=== PATIENT | male | born 1990 | race Hispanic/Latino ===

== ENCOUNTER 2016-09-08 10:50 | Emergency (ER) | payer BC, MEDICAID ==
[2016-09-08 10:56] VITALS: BMI 26.2
[2016-09-08 11:01] VITALS: BP 141/75; TEMP 98.2
--- NOTE | 2016-09-08 11:03 | ED PDOC ---
Arrival/HPI - General Historian: Patient - General Time Seen by Provider: 09/08/16 10:59 - History of Present Illness Narrative History of Present Illness (Text): 09/08/16 10:59 25 y/o male, nkda, psychiatric history of anxiety and ADHD, on adderall and xanax, c/o rt. hand 3rd digit finger injury from the fall x 1 day. Aching pain , aggravated by movement, aching pain, no numbness or tingling, no chest pain or shortness of breath, no night sweat, no other medical or psychological complaints. (Eugene Garcia) Past Medical History - Provider Review Nursing Documentation Reviewed: Yes - Infectious Disease Hx of Infectious Diseases: None - Cardiac Hx Cardiac Disorders: Yes Other/Comment: tachy when at the [facility] "white coat syndrome" - Pulmonary Hx Respiratory Disorders: No - Neurological Hx Neurological Disorder: No - HEENT Hx HEENT Disorder: No - Renal Hx Renal Disorder: No - Endocrine/Metabolic Hx Endocrine Disorders: No - Hematological/Oncological Hx Blood Disorders: No - Integumentary Hx Dermatological Disorder: No - Musculoskeletal/Rheumatological Hx Musculoskeletal Disorders: No - Gastrointestinal Hx Gastrointestinal Disorders: No - Genitourinary/Gynecological Hx Genitourinary Disorders: No - Psychiatric Hx Anxiety: Yes Hx Depression: Yes Hx Substance Use: No Other/Comment: ADD - Anesthesia Hx Anesthesia: No - Suicidal Assessment Feels Threatened In Home Enviroment: No Family/Social History - Physician Review Nursing Documentation Reviewed: Yes Family/Social History: Unknown Family HX Smoking Status: Never Smoked Hx Alcohol Use: Yes Frequency of alcohol use: Socially Hx Substance Use: No Allergies/Home Meds Allergies/Adverse Reactions: Allergies No Known Allergies Allergy (Verified 09/08/16 10:55) Home Medications: Home Meds Medication Instructions Recorded Confirmed ALPRAZolam [Xanax] 1 mg PO QID PRN 09/08/16 09/08/16 Dextroamphetamine/Amphetamine 30 mg PO BID 09/08/16 09/08/16 [Adderall 10 mg Tablet] Review of Systems - Review of Systems Constitutional: absent: Fatigue, Fevers Eyes: absent: Vision Changes ENT: absent: Hearing Changes Respiratory: absent: SOB, Cough Cardiovascular: absent: Chest Pain Gastrointestinal: absent: Abdominal Pain, Nausea, Vomiting Musculoskeletal: Arthralgias. absent: Back Pain, Neck Pain, Joint Swelling, Myalgias Skin: absent: Rash, Pruritis, Skin Lesions, Laceration Physical Exam Vital Signs Reviewed: Yes Temperature: Afebrile Blood Pressure: Normal Pulse: Regular Respiratory Rate: Normal Appearance: Positive for: Well-Appearing, Non-Toxic, Comfortable Pain Distress: Mild Mental Status: Positive for: Alert and Oriented X 3 - Systems Exam Head: Present: Atraumatic, Normocephalic Pupils: Present: PERRL Extroacular Muscles: Present: EOMI Conjunctiva: Present: Normal Mouth: Present: Moist Mucous Membranes Neck: Present: Normal Range of Motion Respiratory/Chest: Present: Clear to Auscultation, Good Air Exchange. No: Respiratory Distress, Accessory Muscle Use Cardiovascular: Present: Regular Rate and Rhythm, Normal S1, S2. No: Murmurs Abdomen: Present: Normal Bowel Sounds. No: Tenderness, Distention, Peritoneal Signs Back: Present: Normal Inspection Upper Extremity: Present: Normal Inspection, Other (Rt. hand: +ttp and swelling on the 3rd PIPJ with skin intact, no laceration or abrasion, FROM without limitation, sensation intact, motor 5/5, +radial pulse, capillary refill< 2 seconds, no visible puncture wound, no cellulitis or streaking, no ulcers, no sausage shaped fingers, +radial pulse, capillary refill< 2 seconds, neurovascular intact. ). No: Cyanosis, Edema Lower Extremity: Present: Normal Inspection. No: Edema Neurological: Present: GCS=15, Speech Normal, Motor Func Grossly Intact, Gait Normal, Memory Normal Skin: Present: Warm, Dry, Normal Color. No: Rashes Psychiatric: Present: Alert, Oriented x 3, Normal Insight, Normal Concentration Medical Decision Making - RAD Interpretation Assistant Offset Press Operator: Radiologist ED Course and Treatment: 09/08/16 11:02 -rt. hand xray 3rd digit show +fracture noted on the PIPJ of 3rd middle phalanx base region. -finger splint applied with neurovascular intact. -Discharge home with naproxen, finger splint, ice pack, follow up with your own pmd and hand specialist within 2 days, return to the ER for any new or worsening signs or symptoms. (Eugene Garcia) I was available for consultation during PA evaluation. The chart was reviewed by me, and I agree with disposition. The documented history was done by the physician jewellery designer. The documented physical exam was done by the physician jewellery designer. The documented procedures were done by the physician jewellery designer. (Ulises Berger) - RAD Interpretation Radiology Orders: 09/08/16 11:00 HAND RIGHT 3RD DIGIT (FINGER) [RAD] Stat PROCEDURE: Right middle finger radiographs. HISTORY: rt. hand 3rd digit PIPJ injury from fall COMPARISON: None available. TECHNIQUE: AP radiograph of the right hand, as well as spot oblique and lateral images of right middle finger were obtained. FINDINGS: RIGHT MIDDLE FINGER: Right 3rd digit demonstrates minimally displaced fracture of the proximal aspect middle phalanx with intra-articular extension. Remainder of the right hand (as seen on the AP view) grossly unremarkable. JOINTS: No dislocation. SOFT TISSUES: Soft tissue swelling. No evidence of radiopaque foreign body. OTHER FINDINGS: None. IMPRESSION: Minimally displaced fracture of the proximal aspect 3rd digit middle phalanx with intra-articular extension. Soft tissue swelling. (Eugene Garcia) - PA / APPLICATION PACKAGING SPECIALIST / Resident Statement MD/DO has reviewed & agrees with the documentation as recorded. Disposition/Present on Arrival - Present on Arrival Any Indicators Present on Arrival: No History of DVT/PE: No History of Uncontrolled Diabetes: No Urinary Catheter: No History of Decub. Ulcer: No History Surgical Site Infection Following: None - Disposition Have Diagnosis and Disposition been Completed?: Yes Disposition Time: 11:03 Patient Plan: Discharge - Disposition Diagnosis: Finger injury, Finger pain, Finger fracture Disposition: HOME/ ROUTINE Condition: GOOD Additional Instructions: -Discharge home with naproxen, finger splint, ice pack, follow up with your own pmd and hand specialist within 2 days, return to the ER for any new or worsening signs or symptoms. Prescriptions: Ibuprofen [Motrin Tab] 600 mg PO QID PRN #24 tab PRN Reason: Other Referrals: Patti SAM,Sebastian Alexander MD [Primary Care Provider] - Follow up with primary Eduardo Izquierdo III, MD [Medical Doctor] - Follow up with primary Bolivar Bingham MD [Staff Provider] - Follow up with primary Forms: WORK NOTE
[2016-09-08 11:56] VITALS: PULSE 82; RESP 18; O2SAT 100
--- NOTE | 2016-09-08 12:07 | RAD ---
PROCEDURE: Right middle finger radiographs. HISTORY: rt. hand 3rd digit PIPJ injury from fall COMPARISON: None available. TECHNIQUE: AP radiograph of the right hand, as well as spot oblique and lateral images of right middle finger were obtained. FINDINGS: RIGHT MIDDLE FINGER: Right 3rd digit demonstrates minimally displaced fracture of the proximal aspect middle phalanx with intra-articular extension. Remainder of the right hand (as seen on the AP view) grossly unremarkable. JOINTS: No dislocation. SOFT TISSUES: Soft tissue swelling. No evidence of radiopaque foreign body. OTHER FINDINGS: None. IMPRESSION: Minimally displaced fracture of the proximal aspect 3rd digit middle phalanx with intra-articular extension. Soft tissue swelling.
== END 2016-09-08 12:02 | disposition home or self-care (01) ==
LOC: ED 10:50
DX: S62.612A Displaced fracture of proximal phalanx of right middle finger, initial encounter for closed fracture (principal); W01.0XXA Fall on same level from slipping, tripping and stumbling without subsequent striking against object, initial encounter; Y93.21 Activity, ice skating; Y92.89 Other specified places as the place of occurrence of the external cause

== ENCOUNTER 2016-09-16 15:19 | Emergency (ER) | payer BC ==
[2016-09-16 15:19] VITALS: BMI 26.2
== END 2016-09-16 16:25 | disposition left against medical advice (07) ==
LOC: ED 15:19
DX: Z02.89 Encounter for other administrative examinations (principal); Z00.00 Encounter for general adult medical examination without abnormal findings

== ENCOUNTER 2016-10-18 14:08 | Emergency (ER) | payer BC ==
[2016-10-18 14:16] VITALS: BMI 26.1
[2016-10-18 14:20] VITALS: RESP 18; TEMP 98.7; O2SAT 99
--- NOTE | 2016-10-18 14:37 | ED PDOC ---
Arrival/HPI - General Chief Complaint: Finger,Hand,&Wrist Time Seen by Provider: 10/18/16 14:33 Historian: Patient - History of Present Illness Narrative History of Present Illness (Text): 10/18/16 14:34 25 y/o male, pmh including rt. hand 3rd digit finger fracture about 4 weeks ago , nkda, c/o rt. hand 3rd digit pain after carrying the grocery. Pt. stated that he recently removed the splint after he told he was seen by the hand specialist to tell him to remove it. 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 Past Medical History - Provider Review Nursing Documentation Reviewed: Yes - Infectious Disease Hx of Infectious Diseases: None - Cardiac Hx Cardiac Disorders: Yes Other/Comment: tachy when at the [facility] "white coat syndrome" - Pulmonary Hx Respiratory Disorders: No - Neurological Hx Neurological Disorder: No - HEENT Hx HEENT Disorder: No - Renal Hx Renal Disorder: No - Endocrine/Metabolic Hx Endocrine Disorders: No - Hematological/Oncological Hx Blood Disorders: No - Integumentary Hx Dermatological Disorder: No - Musculoskeletal/Rheumatological Hx Musculoskeletal Disorders: No - Gastrointestinal Hx Gastrointestinal Disorders: No - Genitourinary/Gynecological Hx Genitourinary Disorders: No - Psychiatric Hx Anxiety: Yes Hx Depression: Yes Hx Substance Use: No Other/Comment: ADD - Anesthesia Hx Anesthesia: No - Suicidal Assessment Feels Threatened In Home Enviroment: No Family/Social History - Physician Review Nursing Documentation Reviewed: Yes Family/Social History: Unknown Family HX Smoking Status: Current Some Days Smoker Hx Alcohol Use: Yes Frequency of alcohol use: Socially Hx Substance Use: No Allergies/Home Meds Allergies/Adverse Reactions: Allergies No Known Allergies Allergy (Verified 09/08/16 10:55) Home Medications: Home Meds Medication Instructions Recorded Confirmed ALPRAZolam [Xanax] 1 mg PO QID PRN 09/08/16 10/18/16 Dextroamphetamine/Amphetamine 30 mg PO BID 09/08/16 10/18/16 [Adderall 10 mg Tablet] Review of Systems - Review of Systems Constitutional: absent: Fatigue, Fevers Eyes: absent: Vision Changes ENT: absent: Hearing Changes Respiratory: absent: SOB, Cough Cardiovascular: absent: Chest Pain Gastrointestinal: absent: Abdominal Pain, Nausea, Vomiting Musculoskeletal: Arthralgias. absent: Back Pain, Neck Pain Skin: absent: Rash, Pruritis, Skin Lesions Physical Exam Vital Signs Reviewed: Yes Vital Signs Temp Pulse Resp BP Pulse Ox 10/18/16 15:23 98 H 18 148/94 H 99 10/18/16 14:19 98.7 F 113 H 18 150/103 H 99 Temperature: Afebrile Blood Pressure: Hypertensive Pulse: Tachycardic Respiratory Rate: Normal Appearance: Positive for: Well-Appearing, Non-Toxic, Comfortable Pain Distress: Mild Mental Status: Positive for: Alert and Oriented X 3 - Systems Exam Head: Present: Atraumatic, Normocephalic Pupils: Present: PERRL Extroacular Muscles: Present: EOMI Conjunctiva: Present: Normal Mouth: Present: Moist Mucous Membranes Neck: Present: Normal Range of Motion Respiratory/Chest: Present: Clear to Auscultation, Good Air Exchange. No: Respiratory Distress, Accessory Muscle Use Cardiovascular: Present: Regular Rate and Rhythm, Normal S1, S2. No: Murmurs Abdomen: Present: Normal Bowel Sounds. No: Tenderness, Distention, Peritoneal Signs Back: Present: Normal Inspection Upper Extremity: Present: Normal Inspection, Other (Rt. hand 3rd digit: mild swelling with mild +ttp on the PIPJ, skin intact, no ecchymosis, no laceration or abrasion, FROM without limitation, sensation intact, motor 5/5, +radial pulse , capillary refill< 2 seconds, neurovascular intact. ). No: Cyanosis, Edema Lower Extremity: Present: Normal Inspection. No: Edema Neurological: Present: GCS=15, CN II-XII Intact, Speech Normal Skin: Present: Warm, Dry, Normal Color. No: Rashes Psychiatric: Present: Alert, Oriented x 3, Normal Insight, Normal Concentration Medical Decision Making ED Course and Treatment: 10/18/16 14:36 -repeat xray -pt. has the splint on from the hand specialist which he just removed it. 10/18/16 14:58 -Xray reviewed there is healing fracture on the rt. hand 3rd PIPJ which is also seen on the previous xray. -Discharge home with naproxen, keep the finger splint on, follow up with your own pmd and hand specialist within 2 days, return to the ER for any new or worsening signs or symptoms. - RAD Interpretation Radiology Orders: 10/18/16 14:33 HAND RIGHT 3RD DIGIT (FINGER) [RAD] Stat healing intra-articular fracture Measurement Supervisor: Radiologist - PA / TEST DESK OPERATOR / Resident Statement MD/DO has reviewed & agrees with the documentation as recorded. Disposition/Present on Arrival - Present on Arrival Any Indicators Present on Arrival: No History of DVT/PE: No History of Uncontrolled Diabetes: No Urinary Catheter: No History of Decub. Ulcer: No History Surgical Site Infection Following: None - Disposition Have Diagnosis and Disposition been Completed?: Yes Diagnosis: Finger fracture Disposition: HOME/ ROUTINE Disposition Time: 14:37 Patient Plan: Discharge Condition: GOOD Additional Instructions: -Discharge home with naproxen, keep the finger splint on, follow up with your own pmd and hand specialist within 2 days, return to the ER for any new or worsening signs or symptoms. Prescriptions: Naproxen 500 mg PO BID PRN #20 tab PRN Reason: Other Referrals: Dalia Napier MD [Non-Staff] - Follow up with primary Forms: [employer] (Senegalese), WORK NOTE
[2016-10-18 15:24] VITALS: BP 148/94; PULSE 98
--- NOTE | 2016-10-18 16:21 | RAD ---
PROCEDURE: Right middle finger radiographs. HISTORY: rt. hand 3rd digit pain, recently fractured COMPARISON: Comparison made with prior study dated 09/06/2026 TECHNIQUE: AP radiograph of the right hand, as well as spot oblique and lateral images of right middle finger were obtained. FINDINGS: RIGHT MIDDLE FINGER: Current study re- demonstrates apparent healing intra-articular fracture of the palmar aspect base proximal phalanx 3rd finger (volar plate). JOINTS: Joint spaces preserved. SOFT TISSUES: There appears to be mild soft tissue swelling surrounding the PIP joint 3rd finger. OTHER FINDINGS: None. IMPRESSION: Apparent healing intra-articular fracture palmar aspect base proximal phalanx 3rd finger (volar plate).
== END 2016-10-18 15:45 | disposition home or self-care (01) ==
LOC: ED 14:08
DX: S62.602A Fracture of unspecified phalanx of right middle finger, initial encounter for closed fracture (principal); X50.0XXA Overexertion from strenuous movement or load, initial encounter; Y93.89 Activity, other specified; Y92.89 Other specified places as the place of occurrence of the external cause

== ENCOUNTER 2017-02-04 14:22 | Emergency (ER) | payer MEDICAID, OTHER ==
[2017-02-04 14:23] VITALS: BMI 26.1
[2017-02-04 14:37] VITALS: RESP 16; TEMP 99.3
--- NOTE | 2017-02-04 15:06 | ED PDOC ---
Arrival/HPI - General Chief Complaint: Upper Extremity Problem/Injury Time Seen by Provider: 02/04/17 14:54 Historian: Patient - History of Present Illness Narrative History of Present Illness (Text): 02/04/17 15:02 26yr old male presents today with right 3rd finger pain s/p injury. pt states that fell landing on the right hand injuring the right 3rd finger. pt denies hitting his head. Denies neck or back pain. Patient denies abdominal pain. No nausea or vomiting. Denies dizziness or weakness. He denies any wrist pain. Patient states he only has pain to the right third finger. He denies decreased range of motion of the finger. Denies chest pain or shortness of breath. Patient states he is very anxious and does not like to be in hospitals. Time/Duration: Other (yesterday) Symptom Onset: Sudden Symptom Course: Improving Quality: Aching Severity Level: 1 Past Medical History - Provider Review Nursing Documentation Reviewed: Yes - Travel History Have you recently traveled outside [place] w/in the past 3 mons?: No - Infectious Disease Hx of Infectious Diseases: None - Cardiac Hx Cardiac Disorders: Yes Other/Comment: frida when at the MD "white coat syndrome" - Pulmonary Hx Respiratory Disorders: No - Neurological Hx Neurological Disorder: No - HEENT Hx HEENT Disorder: No - Renal Hx Renal Disorder: No - Endocrine/Metabolic Hx Endocrine Disorders: No - Hematological/Oncological Hx Blood Disorders: No - Integumentary Hx Dermatological Disorder: No - Musculoskeletal/Rheumatological Hx Musculoskeletal Disorders: No - Gastrointestinal Hx Gastrointestinal Disorders: No - Genitourinary/Gynecological Hx Genitourinary Disorders: No - Psychiatric Hx Anxiety: Yes Hx Depression: Yes Hx Substance Use: No Other/Comment: ADD - Anesthesia Hx Anesthesia: No - Suicidal Assessment Feels Threatened In Home Enviroment: No Family/Social History - Physician Review Nursing Documentation Reviewed: Yes Family/Social History: Unknown Family HX Smoking Status: Current Some Days Smoker Hx Alcohol Use: Yes Hx Substance Use: No Allergies/Home Meds Allergies/Adverse Reactions: Allergies No Known Allergies Allergy (Verified 09/08/16 10:55) Home Medications: Home Meds Medication Instructions Recorded Confirmed ALPRAZolam [Xanax] 1 mg PO QID PRN 09/08/16 02/04/17 Review of Systems - Review of Systems Constitutional: absent: Fatigue, Fevers Respiratory: absent: SOB Cardiovascular: absent: Chest Pain, Palpitations Gastrointestinal: absent: Abdominal Pain, Nausea, Vomiting Genitourinary Male: absent: Dysuria Musculoskeletal: Arthralgias. absent: Back Pain, Neck Pain Skin: absent: Rash, Pruritis Neurological: absent: Headache, Dizziness Psychiatric: Anxiety. absent: Depression, Suicidal Ideation Physical Exam Vital Signs Reviewed: Yes Vital Signs Temp Pulse Resp BP Pulse Ox 02/04/17 15:07 126 H 16 110/79 98 02/04/17 14:33 99.3 F 118 H 16 155/96 H 96 Temperature: Afebrile Blood Pressure: Hypertensive Pulse: Tachycardic Respiratory Rate: Normal Appearance: Positive for: Well-Appearing, Non-Toxic, Comfortable Pain Distress: None Mental Status: Positive for: Alert and Oriented X 3, other (anxious) - Systems Exam Head: Present: Atraumatic Mouth: Present: Moist Mucous Membranes Neck: Present: Normal Range of Motion Respiratory/Chest: Present: Clear to Auscultation Cardiovascular: Present: Tachycardic. No: Murmurs Upper Extremity: Present: Normal ROM, NORMAL PULSES, Tenderness (right 3rd finger; + ttp over PIP. no edema, no erythema; no ecchymosis; full rom of finger ; sensation and distal pulses intact. ), Neurovascularly Intact, Capillary Refill < 2s. No: Swelling, Erythema, Deformity Neurological: Present: GCS=15 Skin: Present: Warm, Dry, Normal Color. No: Rashes Psychiatric: Present: Alert, Oriented x 3 Medical Decision Making ED Course and Treatment: 02/04/17 15:22 Patient is nontoxic well-appearing in no distress. tachycardic; very anxious. XRAY right 3rd finger; + avulsion fx middle phalanx 3rd finger pt refused medications for pain finger splint applied. I discussed all results in depth with the patient advised follow-up with the orthopedist within the next 2 days. I've advised me to return if symptoms worsen persist or if new concerning symptoms develop Patient verbalizes understanding of discharge instructions and need for immediate followup. all aspects of this case were discussed the attending of record. IMPRESSION: fracture, finger Motrin every 6 hours as needed for pain Follow up with primary care physician within the next 2 days Follow up with the orthopedist within the next 2 days Return if symptoms worsen persist or if new symptoms develop 02/04/17 16:06 - RAD Interpretation Radiology Orders: 02/04/17 14:54 HAND RIGHT 3RD DIGIT (FINGER) [RAD] Stat Disposition/Present on Arrival - Present on Arrival Any Indicators Present on Arrival: No History of DVT/PE: No History of Uncontrolled Diabetes: No Urinary Catheter: No History of Decub. Ulcer: No History Surgical Site Infection Following: None - Disposition Have Diagnosis and Disposition been Completed?: Yes Diagnosis: Fracture, finger Disposition: HOME/ ROUTINE Disposition Time: 16:07 Patient Plan: Discharge Condition: GOOD Discharge Instructions (ExitCare): Finger Fracture (ED) Additional Instructions: Motrin every 6 hours as needed for pain Follow up with primary care physician within the next 2 days Follow up with the orthopedist within the next 2 days Return if symptoms worsen persist or if new symptoms develop Referrals: Dread Edwards MD [Staff Provider] - Follow up with primary Bolivar Bingham MD [Staff Provider] - Follow up with primary Forms: [facility] (Erit[place]an), WORK NOTE
--- NOTE | 2017-02-04 16:05 | RAD ---
PROCEDURE: Right Hand Radiographs. HISTORY: finger injury COMPARISON: None. FINDINGS: BONES: There is a minimally displaced avulsion fracture along the ventral aspect of the base of the 3rd middle phalanx. This is seen on the lateral view JOINTS: Normal. No osteoarthritic changes. SOFT TISSUES: Normal. OTHER FINDINGS: None. IMPRESSION: There is a minimally displaced avulsion fracture along the ventral aspect of the base of the 3rd middle phalanx. This is seen on the lateral view
[2017-02-04 16:34] VITALS: PULSE 96; O2SAT 100
[2017-02-04 19:33] VITALS: BP 112/87
== END 2017-02-04 16:33 | disposition home or self-care (01) ==
LOC: ED 14:22
DX: S62.602A Fracture of unspecified phalanx of right middle finger, initial encounter for closed fracture (principal); W19.XXXA Unspecified fall, initial encounter